=== PATIENT | male | born 1985 | race Hispanic/Latino ===

== ENCOUNTER 2023-11-20 14:44 | Inpatient (IN) | payer OTHER ==
[~2023-11-20] VITALS: Ht 175.3 cm; Wt 104.3 kg
[2023-11-20] VITALS (7 sets, daily range): BP systolic 111–124; BP diastolic 71–85; PULSE 76–88; RESP 18; TEMP 98.3–98.7; O2SAT 100
[2023-11-20 15:26] LABS: BASOPHILS % 0.6 % (0.0-1.0); EOSINOPHILS # (AUTO) 0.5 (0.0-0.4); EOSINOPHILS % 10.2 % (0.0-6.0); HEMATOCRIT 35.6 % (38.2-49.6); HEMOGLOBIN 11.3 g/dL (14.0-18.0); LYMPHOCYTES # (AUTO) 1.3 (1.0-3.2); LYMPHOCYTES % 27.4 % (18.0-39.1); MEAN CORPUSCULAR HEMOGLOBIN 30.8 pg (28-32); MEAN CORPUSCULAR HGB CONC 31.7 g/dL (31-35); MONOCYTES # (AUTO) 0.4 (0.2-0.8); MONOCYTES % 9.1 % (4.4-11.3); NEUTROPHILS # (AUTO) 2.5 (2.1-6.9); NEUTROPHILS % 52.5 % (38.7-80.0); PLATELET COUNT 289 x10e3/uL (140-360); RED BLOOD COUNT 3.67 x10e6/uL (4.3-5.7); RED CELL DISTRIBUTION WIDTH 12.6 % (11.7-14.4); WHITE BLOOD COUNT 4.81 x10e3/uL (4.8-10.8)
[2023-11-20 15:29] LABS: INR 1.04; PROTHROMBIN TIME 14.1 seconds (11.9-14.5)
[2023-11-20 15:30] LABS: PARTIAL THROMBOPLASTIN TIME 27.5 seconds (23.8-35.5)
[2023-11-20 15:36] LABS: ALBUMIN 3.9 g/dL (3.5-5.0); ANION GAP 12.8 mmol/L (8-16); BILIRUBIN,TOTAL 0.3 mg/dL (0.2-1.2); CREATININE, SERUM 1.76 mg/dL (0.72-1.25); POTASSIUM 4.8 mmol/L (3.5-5.1); TOTAL PROTEIN 7.8 g/dL (6.5-8.1)
[2023-11-20] MEDS: VANCOMYCIN 2 GRAM/400 ML (PEG) 400 ML IV ONE (16:33)
[2023-11-20] MEDS ORDERED: Morphine 2mg Syringe 2 MG/ML SYR IV PRN (17:00)
[2023-11-20] MEDS ORDERED: ONDANSETRON HCL INJ 2MG/ML 2ML 2 MG/ML VIAL IV PRN (17:00)
[2023-11-20] MEDS ORDERED: ROSUVASTATIN CA10 MG PO (23:56)
[2023-11-20] MEDS ORDERED: TRESIBA FL100 UNIT/1 SQ (23:56)
[2023-11-20] MEDS ORDERED: FENOFIBRIC ACI135 MG PO (23:56)
[2023-11-20] MEDS ORDERED: NOVOLOG100 UNITS1 SQ (23:56)
[2023-11-20] MEDS ORDERED: CIPROFLOXACIN500 MG PO (23:56)
[2023-11-20] MEDS ORDERED: MIDODRINE HCL5 MG PO (23:56)
[2023-11-20] MEDS ORDERED: LINEZOLID600 MG PO (23:56)
[2023-11-20] MEDS ORDERED: TADALAFIL20 MG PO (23:56)
[2023-11-21] VITALS (7 sets, daily range): BP systolic 108–136; BP diastolic 70–92; PULSE 79–89; RESP 15–19; TEMP 97.7–98.6; O2SAT 99–100
[2023-11-21] MEDS: SODIUM CHLORIDE 0.9% 1000ML 1,000 ML IV SCH (01:13)
[2023-11-21 06:01] LABS: BASOPHILS % 0.6 % (0.0-1.0); EOSINOPHILS # (AUTO) 0.4 (0.0-0.4); EOSINOPHILS % 7.6 % (0.0-6.0); HEMATOCRIT 33.9 % (38.2-49.6); HEMOGLOBIN 10.3 g/dL (14.0-18.0); LYMPHOCYTES # (AUTO) 1.4 (1.0-3.2); LYMPHOCYTES % 27.5 % (18.0-39.1); MEAN CORPUSCULAR HEMOGLOBIN 30.2 pg (28-32); MEAN CORPUSCULAR HGB CONC 30.4 g/dL (31-35); MEAN CORPUSCULAR VOLUME 99.4 fL (81-99); MONOCYTES # (AUTO) 0.6 (0.2-0.8); MONOCYTES % 10.9 % (4.4-11.3); NEUTROPHILS # (AUTO) 2.8 (2.1-6.9); NEUTROPHILS % 53.2 % (38.7-80.0); PLATELET COUNT 238 x10e3/uL (140-360); RED BLOOD COUNT 3.41 x10e6/uL (4.3-5.7); RED CELL DISTRIBUTION WIDTH 12.8 % (11.7-14.4); WHITE BLOOD COUNT 5.24 x10e3/uL (4.8-10.8)
[2023-11-21 06:24] LABS: INR 1.08; PROTHROMBIN TIME 14.6 seconds (11.9-14.5)
[2023-11-21 06:35] LABS: ALBUMIN 3.3 g/dL (3.5-5.0); ANION GAP 11.5 mmol/L (8-16); BILIRUBIN,TOTAL 0.3 mg/dL (0.2-1.2); CALCIUM 8.9 mg/dL (8.4-10.2); CREATININE, SERUM 1.57 mg/dL (0.72-1.25); POTASSIUM 4.5 mmol/L (3.5-5.1); TOTAL PROTEIN 6.7 g/dL (6.5-8.1)
[2023-11-21] MEDS ORDERED: DEXTROSE 50% SYRINGE 50 ML IV PRN (08:45)
[2023-11-21] MEDS: MIDODRINE HCL 5 MG TABLET PO SCH (09:38)
[2023-11-21] MEDS: INSULIN LISPRO 100 UNIT/1 ML 3ML VIAL SQ SCH ×2 (12:26→12:28)
[2023-11-21] MEDS: NON-FORMULARY MEDICATION (Insulin Degludec (Tresiba Flextouch U-100) 15 UNITS) SQ SCH (21:00)
[2023-11-22] VITALS (8 sets, daily range): BP systolic 105–130; BP diastolic 70–88; PULSE 76–82; RESP 16–19; TEMP 97.7–98.5; O2SAT 98–100
[2023-11-23] VITALS (8 sets, daily range): BP systolic 109–139; BP diastolic 71–95; PULSE 62–86; RESP 16–20; TEMP 97.5–98.3; O2SAT 98–100
[2023-11-23] MEDS: CEFTRIAXONE 2 GM in SODIUM CHLORIDE 0.9% 100 ML IV SCH (16:02)
[2023-11-24] VITALS (9 sets, daily range): BP systolic 102–125; BP diastolic 58–84; PULSE 56–83; RESP 16–20; TEMP 96.1–99.1; O2SAT 98–100
[2023-11-24] MEDS: ACETAMINOPHEN 325 MG TAB PO PRN (09:55)
[2023-11-24] MEDS: ENOXAPARIN SOD INJ 40 MG/0.4 ML SYR SC SCH (17:25)
[2023-11-25 05:30] LABS: BASOPHILS % 0.7 % (0.0-1.0); EOSINOPHILS # (AUTO) 0.5 (0.0-0.4); EOSINOPHILS % 7.8 % (0.0-6.0); HEMATOCRIT 34.7 % (38.2-49.6); HEMOGLOBIN 11.1 g/dL (14.0-18.0); LYMPHOCYTES % 33.2 % (18.0-39.1); MEAN CORPUSCULAR HEMOGLOBIN 31.1 pg (28-32); MEAN CORPUSCULAR VOLUME 97.2 fL (81-99); MONOCYTES # (AUTO) 0.6 (0.2-0.8); MONOCYTES % 9.5 % (4.4-11.3); NEUTROPHILS # (AUTO) 2.9 (2.1-6.9); NEUTROPHILS % 48.6 % (38.7-80.0); PLATELET COUNT 258 x10e3/uL (140-360); RED BLOOD COUNT 3.57 x10e6/uL (4.3-5.7); RED CELL DISTRIBUTION WIDTH 12.5 % (11.7-14.4); WHITE BLOOD COUNT 6.02 x10e3/uL (4.8-10.8)
[2023-11-25 05:36] VITALS: BP 99/68; PULSE 75; RESP 16; TEMP 97.8; O2SAT 100
[2023-11-25 05:47] LABS: ANION GAP 11.2 mmol/L (8-16); CALCIUM 9.6 mg/dL (8.4-10.2); CREATININE, SERUM 1.25 mg/dL (0.72-1.25); POTASSIUM 4.2 mmol/L (3.5-5.1)
[2023-11-25 07:42] VITALS: BP 115/78; PULSE 79; RESP 18; TEMP 97.4; O2SAT 100
[2023-11-25 10:36] VITALS: BP 115/78; PULSE 79; RESP 17; TEMP 97.1; O2SAT 100
[2023-11-25 12:10] VITALS: BP 119/75; PULSE 83; RESP 17; TEMP 98.1; O2SAT 100
[2023-11-25 16:41] VITALS: BP 104/78; PULSE 88; RESP 17; TEMP 98.4; O2SAT 100
[2023-11-25 20:00] VITALS: BP 116/78; PULSE 80; RESP 20; TEMP 98.4; O2SAT 100
[2023-11-26] VITALS: BP 100/68; PULSE 74; RESP 18; TEMP 97.7; O2SAT 100
[2023-11-26 08:00] VITALS: BP 98/69; PULSE 74; RESP 18; TEMP 97.7; O2SAT 100
[2023-11-26 08:01] VITALS: BP 98/69; PULSE 83; RESP 19; TEMP 98.4; O2SAT 100
[2023-11-26 11:24] VITALS: BP 107/79; PULSE 85; RESP 18; TEMP 97.9; O2SAT 100
[2023-11-26 16:00] VITALS: BP 104/84; PULSE 85; RESP 16; TEMP 98; O2SAT 100
== END 2023-11-26 18:00 | disposition home or self-care (01) | DRG 638 ==
LOC: ER 15:00 → ERHOLD 16:54 → MED/SURG3 18:17
PROVIDERS: ADMIT Internal Medicine; ATTEND Internal Medicine
PROC: 02HV33Z Insertion of Infusion Device into Superior Vena Cava, Percutaneous Approach (ICD-10-PCS; principal; 2023-11-23)
DX: E10.621 Type 1 diabetes mellitus with foot ulcer (principal); L97.518 Non-pressure chronic ulcer of other part of right foot with other specified severity; M86.171 Other acute osteomyelitis, right ankle and foot; E10.42 Type 1 diabetes mellitus with diabetic polyneuropathy; E10.22 Type 1 diabetes mellitus with diabetic chronic kidney disease; E10.69 Type 1 diabetes mellitus with other specified complication; E10.65 Type 1 diabetes mellitus with hyperglycemia; N18.30 Chronic kidney disease, stage 3 unspecified; E78.5 Hyperlipidemia, unspecified; E66.9 Obesity, unspecified; Z68.34 Body mass index [BMI] 34.0-34.9, adult; R53.81 Other malaise; Z79.4 Long term (current) use of insulin; Z89.411 Acquired absence of right great toe
CPT/HCPCS: 36415; 36568; 36569; 71045; 80048; 80053; 82948; 85025; 85610; 85730; 87040; 87071; 87205; 99252; 99284; J0696; J1650; J2543; J7030; J7050

== ENCOUNTER → 2023-11-28 | Outpatient (REF) | payer OTHER ==
[~2023-11-28] MED LIST: CIPROFLOXACIN500 MG PO; FENOFIBRIC ACI135 MG PO; LINEZOLID600 MG PO; MIDODRINE HCL5 MG PO; MINERAL OIL/PETROLAT/GLYCERI 6OZ BTL ONE; NOVOLOG100 UNITS1 SQ; ROSUVASTATIN CA10 MG PO; TADALAFIL20 MG PO; TRESIBA FL100 UNIT/1 SQ
== END ==
LOC: WCC 12:27
PROVIDERS: ATTEND Nurse Practitioner Family
DX: E11.621 Type 2 diabetes mellitus with foot ulcer (principal); M86.171 Other acute osteomyelitis, right ankle and foot; L97.414 Non-pressure chronic ulcer of right heel and midfoot with necrosis of bone

== ENCOUNTER → 2023-12-07 | Outpatient (REF) | payer OTHER ==
[~2023-12-07] MED LIST changes: -MINERAL OIL/PETROLAT/GLYCERI 6OZ BTL ONE
== END ==
LOC: MRI 09:38
PROVIDERS: ATTEND Nurse Practitioner Family
DX: E11.621 Type 2 diabetes mellitus with foot ulcer (principal); M86.171 Other acute osteomyelitis, right ankle and foot; L97.414 Non-pressure chronic ulcer of right heel and midfoot with necrosis of bone
CPT/HCPCS: 93005

== ENCOUNTER → 2023-12-11 | Outpatient (REF) | payer OTHER ==
[~2023-12-11] MED LIST changes: +LIDOCAINE VISC 2% SOLN 15 ML UDC ONE; +MINERAL OIL/PETROLAT/GLYCERI 6OZ BTL ONE; +SODIUM CHLORIDE 0.9% 500ML 500 ML ONE; +TRANEXAMIC ACID 20 ML ONE; +TRYPSIN/BALSAM PERU/CASTOR OIL ONE; +Vancomycin IV 500 MG ONE
== END ==
LOC: WCC 10:18
PROVIDERS: ATTEND Nurse Practitioner Family
DX: E11.621 Type 2 diabetes mellitus with foot ulcer (principal); M86.171 Other acute osteomyelitis, right ankle and foot; L97.514 Non-pressure chronic ulcer of other part of right foot with necrosis of bone
CPT/HCPCS: J3370; J7040

== ENCOUNTER → 2023-12-25 | Outpatient (REF) | payer OTHER ==
[~2023-12-25] MED LIST changes: -LIDOCAINE VISC 2% SOLN 15 ML UDC ONE; -MINERAL OIL/PETROLAT/GLYCERI 6OZ BTL ONE; -SODIUM CHLORIDE 0.9% 500ML 500 ML ONE; -TRANEXAMIC ACID 20 ML ONE; -TRYPSIN/BALSAM PERU/CASTOR OIL ONE; -Vancomycin IV 500 MG ONE
== END ==
LOC: WCC 14:08
PROVIDERS: ATTEND Nurse Practitioner Family
DX: E11.621 Type 2 diabetes mellitus with foot ulcer (principal); L97.514 Non-pressure chronic ulcer of other part of right foot with necrosis of bone
CPT/HCPCS: 71046

== ENCOUNTER → 2023-12-27 | Outpatient (REF) | payer OTHER | LOC: WCC 08:00 | PROVIDERS: ATTEND Nurse Practitioner Family | DX: E11.621 Type 2 diabetes mellitus with foot ulcer (principal); M86.171 Other acute osteomyelitis, right ankle and foot; N18.30 Chronic kidney disease, stage 3 unspecified; L97.514 Non-pressure chronic ulcer of other part of right foot with necrosis of bone; Z89.411 Acquired absence of right great toe; R54 Age-related physical debility; E78.5 Hyperlipidemia, unspecified; G90.09 Other idiopathic peripheral autonomic neuropathy; E66.89 Other obesity not elsewhere classified | CPT/HCPCS: 36415; 82948 ==

== ENCOUNTER → 2023-12-28 | Outpatient (REF) | payer OTHER | LOC: WCC 08:00 | PROVIDERS: ATTEND Nurse Practitioner Family | DX: E11.621 Type 2 diabetes mellitus with foot ulcer (principal); L97.514 Non-pressure chronic ulcer of other part of right foot with necrosis of bone ==

== ENCOUNTER → 2023-12-31 | Outpatient (REF) | payer OTHER | LOC: WCC 10:36 | PROVIDERS: ATTEND Nurse Practitioner Family | DX: M86.171 Other acute osteomyelitis, right ankle and foot (principal); Z89.411 Acquired absence of right great toe; N18.30 Chronic kidney disease, stage 3 unspecified; E11.621 Type 2 diabetes mellitus with foot ulcer; E78.5 Hyperlipidemia, unspecified; R54 Age-related physical debility; G90.09 Other idiopathic peripheral autonomic neuropathy; E66.89 Other obesity not elsewhere classified ==